=== PATIENT | female | born 1970 | race Caucasian/White ===

== ENCOUNTER 2019-10-07 11:06 | Emergency (ER) | payer MEDICAID, SELFPAY ==
[2019-10-07 11:07] VITALS: BP 103/25; PULSE 91; RESP 20; TEMP 36.7; O2SAT 99; BMI 32.0
--- NOTE | 2019-10-07 11:22 | ED.RN ---
AT THIS TIME, PT DOES NOT WANT TO SEE OR SPEAK WITH HER DAUGHTER. PT DOES NOT HAVE HER CELL PHONE WITH HER.
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
[2019-10-07 11:41] LABS: Bacteria 0 SEEN /hpf (None Seen); Mucous, Urine 0 SEEN /hpf (<or=2+); Red Blood Cells-Urine 0 SEEN /hpf (0-5); White Blood Cells 0 SEEN /hpf (0-5)
[2019-10-07] MEDS: LORazepam 1 MG Tablet PO (11:42)
[2019-10-07 11:44] LABS: Color, Urine Straw (Yellow); Glucose, Dipstick Normal (Normal); Ketone-Dipstick Negative (Negative); Leukocyte Esterase-Dipstick Negative /ul (Negative); Nitrite-Dipstick Negative (Negative); Occult Blood-Urine Negative /ul (Negative); Protein-Dipstick Negative (Negative); Specific Gravity, Urine 1.005 (1.002-1.030); Urine Bilirubin Dipstick Negative (Negative); Urine Clarity Clear (Clear); Urine Urobilinogen Normal (Normal); Urine pH 6.5 (5.0 - 8.0)
[2019-10-07 11:53] LABS: Squamous Epithelial Cells - UA 0-5 SEEN /hpf (5-10)
[2019-10-07 11:59] LABS: Absolute Lymphocyte Count 2.76 X10^3/uL (0.83-4.51); Absolute Neutrophil Count 5.1 X10^3/uL (2.0-7.7); Basophil# 0.15 X10^3/uL; Basophil% 1.7 % (0-1); Eosinophil# 0.15 X10^3/uL; Eosinophils% 1.7 % (0-5); Hematocrit 41.5 % (37-47); Lymphocyte # 2.76 X10^3/ul (4.0); Lymphocyte % 30.5 % (19-41); Mean Corp Hgb Conc 33.7 g/dL (32-36); Mean Corpuscular Hgb 30.2 pg (27.0-32.0); Mean Corpuscular Volume 89.6 fL (81-99); Monocyte# 0.86 X10^3/uL; Monocyte% 9.5 % (0-10); NRBC Flagged by Analyzer 0 % (0-5); Neutrophil % 56.3 % (47-70); Platelet Count 405 K/mm3 (150-450); RBC Distribution Width CV 13.8 % (11.6-14.6); RBC Distribution Width SD 44.4 fl (35.1-43.9); Red Blood Count 4.63 M/mm3 (4.2-5.4); White Blood Count 9.1 K/mm3 (4.4-11.0)
[2019-10-07 12:06] LABS: Amphetamine Urine VISTA NEGATIVE (<1000 ng/mL); Barbiturate Urine VISTA NEGATIVE (< 200 ng/mL); Benzodiazepine Urine VISTA NEGATIVE (< 200 ng/mL); Cocaine Urine VISTA NEGATIVE (< 300 ng/mL); Ecstacy Urine VISTA NEGATIVE (< 500 ng/mL); Methadone Urine VISTA NEGATIVE (< 300 ng/mL); PCP Urine VISTA NEGATIVE (< 25 ng/mL); THC Urine VISTA POSITIVE (< 50 ng/mL); Vista UDS pH Range 6
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
[2019-10-07 12:17] LABS: Anion Gap 2 (5-15); BUN 8 mg/dL (7-18); BUN/Creat Ratio 8.8 RATIO (10-20); Calcium,Total 8.6 mg/dL (8.5-10.1); Chloride 106 mmol/L (98-107); Creatinine, Serum 0.91 mg/dL (0.55-1.02); EST Glomerular Filtration Rate 69 mL/min (>60); Est Glom Filt Rate - Afr Amer 84 mL/min (>60); Estimated Creatinine Clearance 57.85 ml/min; Glucose 63 mg/dL (74-106); Potassium 3.2 mmol/L (3.5-5.1); Sodium Level 138 mmol/L (136-145)
--- NOTE | 2019-10-07 12:50 | CM.ED ---
SOCIAL WORK Referral faxed and called to [facility]. Per intake, will review referral and get back to this worker. Loy Olguin, FUEL ISLAND ATTENDANT, SENIOR DESIGNER
[2019-10-07 13:33] VITALS: RESP 16
--- NOTE | 2019-10-07 13:57 | CM.ED ---
SOCIAL WORK Received call from [facility]. Patient accepted by Dr. Alva to [facility]. Nurse to call report to . Patient and staff updated. Diesel Engine Ii Pipe Fitter to set up transport. [place] on chart. Loy Olguin, ENAMEL SPRAYER, FOOD SERVICE REPRESENTATIVE
[2019-10-07 14:00] VITALS: BP 109/77; PULSE 84; RESP 18; O2SAT 99
--- NOTE | 2019-10-07 14:11 | CM.ED ---
SOCIAL WORK Patient's friend, Sweetie updated on patient's acceptance to [facility] per request. Loy Olguin, TAKE OUT WAITER/WAITRESS, USER SUPPORT ANALYST SUPERVISOR
--- NOTE | 2019-10-07 14:13 | NURSING ---
CALLED PHYSICANS, ETA IS 20 MIN
[2019-10-07 14:43] VITALS: BP 109/77; PULSE 84; RESP 18; O2SAT 99
== END 2019-10-07 14:54 ==
PROVIDERS: Emergency Provider Emergency Medicine
DX: R45.851 Suicidal ideations (principal); E87.6 Hypokalemia; F32.9 Major depressive disorder, single episode, unspecified; Z72.0 Tobacco use
CPT/HCPCS: 80048; 80307; 80320; 81001; 84443; 85025; 99285; G0480

== ENCOUNTER 2021-05-12 15:25 | Emergency (ER) | payer MEDICAID, SELFPAY ==
[2021-05-12 15:25] VITALS: BP 125/82; PULSE 92; RESP 18; TEMP 35.7; O2SAT 98; BMI 27.1
--- NOTE | 2021-05-12 18:10 | ED.RN ---
pt called for a room x 2 no response
== END 2021-05-12 18:16 | disposition left against medical advice (07) ==
LOC: ED 18:16
DX: Z53.21 Procedure and treatment not carried out due to patient leaving prior to being seen by health care provider (principal)

== ENCOUNTER 2022-06-01 03:58 | Emergency (ER) | payer MEDICAID, SELFPAY ==
[2022-06-01 03:59] VITALS: BP 90/43; PULSE 100; RESP 18; TEMP 36.7; O2SAT 100; BMI 26.5
--- NOTE | 2022-06-01 04:21 | EX.ED.UPPERE ---
HPI History of Present Illness Chief Complaint: Disclocation Detail of Chief Complaint: Shoulder pain Informant: patient Narrative Narrative: Patient presents with right shoulder pain that started this morning. Patient states she was in bed sleeping when she think she may have turned wrong and may have possibly dislocated her shoulder. Patient is right-hand dominant. Patient states her left shoulder is dislocated multiple times in the past. She is never had a right shoulder dislocation. She denies any trauma or fall. PFSH PFS Medical History no medical history Home Medications NK 10/07/19 [History Last Taken Unknown] Allergy/AdvReac Type Severity Reaction Status Date / Time Penicillins Allergy Shortness Verified 05/12/21 15:28 of breath morphine AdvReac Other Verified 06/01/22 04:02 Social History Smoking Status: Current every day smoker tobacco type: cigarettes ROS ROS ED Review of Systems ROS Unobtainable: other Constitutional Constitutional ED: Reports lethargy; Denies chills, fever(s), sweats or weight loss Eyes Eyes: Denies blurry vision, change in vision or diplopia ENT ENT ED: Denies rhinorrhea or sore throat Cardiovascular Cardiovascular: Denies chest pain, orthopnea or racing heartbeat Respiratory/Chest Respiratory/Chest: Denies cough, dyspnea, dyspnea on exertion, orthopnea or sputum Gastrointestinal Gastrointestinal: Denies abdominal pain, diarrhea, nausea or vomiting Genitourinary Genitourinary ED: Denies dysuria, hematuria or urinary frequency Musculoskeletal Musculoskeletal: Reports other Details: Right shoulder pain ; Denies arthralgias, back pain, myalgias or neck pain Integumentary Denies abscess, Abrasions or rash Neurologic Neurologic: Denies headache(s) or weakness Psychiatric Psychiatric: Denies anxiety, depression or suicidal thoughts Endocrine Endocrinology: Denies polydipsia, polyphagia or polyuria Hematologic/Lymphatic Hematologic/Lymphatic: Denies easy bleeding, easy bruising or lymphadenopathy Allergic/Immunologic Allergic/Immunologic ED: Denies mouth swelling, tongue swelling or urticaria EXAM Physical Exam Const Vital Signs: 06/01/22 03:59 Temperature 98.1 F Temperature Source Oral Pulse Rate 100 Respiratory Rate 18 Blood Pressure 90/43 L Blood Pressure Mean 58 Pulse Ox 100 Oxygen Delivery Method Room Air Positive well nourished and well developed General Appearance ED: well developed and NAD HEENT Reports TM's clear and moist mucous membranes normocephalic and atraumatic; Negative for trauma or tenderness Tympanic Membrane ED: Yes TM's clear Eyes PERRL and EOMs intact bilaterally General Eye ED: Negative for pale conjunctiva or scleral icterus Neck no lymphadenopathy, supple and no JVD General: Negative for tenderness Chest Wall inspection of chest normal and palpation of chest normal Chest: Negative for tenderness Resp normal respiratory effort and clear to auscultation bilaterally Effort and Inspection: Negative for respiratory distress or pain with movement Auscultation: Negative for rhonchi, wheezes or diminished lung sounds Cardio regular rate, regular rhythm, S1 normal heart sound, S2 normal heart sound and no murmurs Peripheral Pulses: pulses 2+ throughout GI normal to inspection, nondistended, normoactive bowel sounds, soft to palpation, non-tender, non-distended and no masses Back/Spine no CVA tenderness and no thoracic nor lumbar tenderness Extremity normal to inspection Extremity Narrative: Right shoulder-patient does have a slight sulcus sign noted. She does not want to move the shoulder at the glenohumeral joint. She is neurovascular intact distally. No evidence of trauma as far as ecchymosis or bruising. General Extremety ED: Negative for edema General Extremity: Negative for edema Neuro oriented x3, CN's II-XII intact bilaterally, no sensory deficits noted and gait normal Sensorium / Orientation: awake, alert, oriented to person, oriented to place and oriented to time Motor Exam: strength 5/5 throughout and strength abnormal Psych mental status grossly normal Skin no rashes or lesions noted and no wounds MDM MDM MDM Narrative Medical decision making narrative: After exam I suspect that possible dislocation anteriorly of the shoulder versus subluxation. I did have her gently lift the arm over her head and ultimately she felt like her shoulder reduced and the sulcus sign disappeared. Patient was ordered an x-ray of her shoulder. After I left the room patient apparently took her gown off and eloped from the emergency department. Discharge Plan Triage Chief Complaint: Disclocation ED Provider: Lucia Mcguire Dx/Rx/DC Orders Clinical Impression: Acute pain of right shoulder, Anterior dislocation of right shoulder Prescriptions: No Action NK Primary Care Provider: Care Physician,No Primary Referrals: Care Physician,No Primary [Primary Care Provider] - Disposition Disposition: Elopement
--- NOTE | 2022-06-01 05:05 | NURSING ---
REGISTRATION NOTIFIED STAFF PT WAS NOT IN ROOM. GOWN WAS LYING ON BED AND PERSONAL CLOTHING GONE. UNIT AND BATHROOM CHECKED UNABLE TO FIND PT. CHARGE NURSE AND DOCTOR UPDATED. PT LEFT BEFORE IMAGING COULD BE OBTAINED OF POST REDUCTION.
== END 2022-06-01 05:09 | disposition left against medical advice (07) ==
LOC: ED 04:51
PROVIDERS: Emergency Provider Emergency Medicine; Visit Provider Emergency Medicine
DX: M25.511 Pain in right shoulder (principal); S43.014A Anterior dislocation of right humerus, initial encounter; F17.210 Nicotine dependence, cigarettes, uncomplicated; X58.XXXA Exposure to other specified factors, initial encounter
CPT/HCPCS: 99282